=== PATIENT | female | born 1975 ===

== ENCOUNTER 2017-07-16 10:01 | Emergency (ER) | payer OTHER ==
[2017-07-16 10:01] VITALS: BMI 28.3
[2017-07-16] MEDS ORDERED: Bacitracin 500 Units/gm Oint Foilpak UD TOP ONE (10:30)
--- NOTE | 2017-07-16 10:35 | C.PDOC ---
History Of Present Illness 42 year old female presents to the ED c/o bilateral knee, bilateral shoulder and lower back pain s/p tripping and falling on Friday. Patient reports she was crossing the street when her left shoe got stuck and she fell on her knees and wrists. Patient states she tried Tylenol for pain. Patient denies LOC, headache, head injury, blurry vision, CP, SOB, abdominal pain, weakness, numbness. Time Seen by Provider: 07/16/17 10:16 Chief Complaint (Nursing): Lower Extremity Problem/Injury History Per: Patient History/Exam Limitations: no limitations Onset/Duration Of Symptoms: Days Current Symptoms Are (Timing): Still Present Recent travel outside of the [place]: No Additional History Per: Patient - Knee Description Of Injury: Fell Currently Unable To: Bend Or Move Alleviating Factor(s): OTC Pain Medication Past Medical History Reviewed: Historical Data, Nursing Documentation, Vital Signs Vital Signs: Last Vital Signs Temp 98.0 F 07/16/17 11:30 Pulse 64 07/16/17 11:30 Resp 18 07/16/17 11:30 BP 104/73 07/16/17 11:30 Pulse Ox 100 07/16/17 11:47 - Medical History PMH: No Chronic Diseases Surgical History: No Surg Hx Family History: States: Unknown Family Hx - Social History Hx Tobacco Use: No Hx Alcohol Use: No Hx Substance Use: No - Immunization History Hx Tetanus Toxoid Vaccination: No Hx Influenza Vaccination: No Hx Pneumococcal Vaccination: No Review Of Systems Constitutional: Negative for: Fever, Chills Cardiovascular: Negative for: Chest Pain Respiratory: Negative for: Shortness of Breath Gastrointestinal: Negative for: Abdominal Pain Musculoskeletal: Positive for: Shoulder Pain, Back Pain, Leg Pain Skin: Negative for: Rash Neurological: Negative for: Weakness, Numbness Physical Exam - Physical Exam Appears: Non-toxic, No Acute Distress Skin: Normal Color, Warm, Dry Head: Atraumatic, Normacephalic Eye(s): bilateral: Normal Inspection Nose: No Discharge Oral Mucosa: Moist Neck: Normal ROM, No Midline Cervical Tenderness, Supple Chest: Symmetrical Cardiovascular: Rhythm Regular, No Murmur Respiratory: Normal Breath Sounds, No Rales, No Rhonchi, No Wheezing Gastrointestinal/Abdominal: Soft, No Tenderness, No Guarding, No Rebound Back: No Vertebral Tenderness, Paraspinal Tenderness (Mid parlumbar ) Extremity: Normal ROM, Tenderness (B/L knees but Right > left), Capillary Refill (<2 seconds), No Swelling, Other (Abrasion to B/L knees, right > left. No cellulitic component) Pulses: Left Radial: Normal, Right Radial: Normal, Left Dorsalis Pedis: Normal, Right Dorsalis Pedis: Normal Neurological/Psych: Oriented x3, Normal Motor, Normal Sensation Gait: Steady ED Course And Treatment O2 Sat by Pulse Oximetry: 100 (On RA) Pulse Ox Interpretation: Normal - Other Rad B/L knee X-Ray X-Ray: Interpreted by Me, Viewed By Me Interpretation: Preliminary read as no fracture. Medical Decision Making Medical Decision Making: Assessment: knee contusion s/p fall Plan: * B/L knee X-Ray * Bacitracin 1 ea TOP * Motrin 600 mg PO * Ultram 50 mg PO Patient has contusions, abrasion. Patient will be D/C with pain medications, advised to follow up in 2 days with her PMD or return to the ED if symptoms worsens. Disposition Counseled Patient/Family Regarding: Studies Performed, Diagnosis, Need For Followup, Rx Given - Disposition Referrals: [facility] [Outside] Disposition: HOME/ ROUTINE Disposition Time: 11:43 Condition: STABLE Additional Instructions: follow up with clinic in 2 days call to make an appointment take pain medications as needed return to hospital if symptoms worsens or progress apply bacitracin twice daily Prescriptions: Bacitracin Ointment [Bacitracin] 1 applic TOP BID PRN #30 tube PRN Reason: Rash Naproxen [Naprosyn] 500 mg PO BID PRN #16 tab PRN Reason: Pain, Moderate (4-7) traMADol [Ultram] 50 mg PO TID PRN #12 tab PRN Reason: Pain, Moderate (4-7) Instructions: Skin Abrasions, Contusion (DC) Forms: [facility] (Citizen [place]), Gen Discharge Inst [place] Print Language: [place] - Clinical Impression Clinical Impression: Abrasion, Contusion - Scribe Statement The provider has reviewed the documentation as recorded by the Scribe Joseph Bright All medical record entries made by the Scribe were at my direction and personally dictated by me. I have reviewed the chart and agree that the record accurately reflects my personal performance of the history, physical exam, medical decision making, and the department course for this patient. I have also personally directed, reviewed, and agree with the discharge instructions and disposition.
[2017-07-16] MEDS ORDERED: Bacitracin 500 Units/gm Oint Foilpak UD ONE (10:40)
[2017-07-16 11:36] VITALS: BP 104/73; PULSE 64; RESP 18; TEMP 98
[2017-07-16 11:46] VITALS: O2SAT 100
--- NOTE | 2017-07-16 12:39 | RAD ---
PROCEDURE: Bilateral Knee Radiographs. HISTORY: fall COMPARISON: None. FINDINGS: BONES: Right Knee: Normal. No fracture. Left Knee: Normal. No fracture. JOINTS: Right Knee: Normal. No osteoarthritis. Left knee: Normal. No osteoarthritis. SOFT TISSUES: Right Knee: Normal. Left Knee: Normal. JOINT EFFUSION: Right Knee: None. Left Knee: None. OTHER FINDINGS: None. IMPRESSION: Normal radiographs of the knees.
== END 2017-07-16 11:52 | disposition home or self-care (01) ==
LOC: C.ER 10:01
DX: S80.02XA Contusion of left knee, initial encounter (principal); S80.01XA Contusion of right knee, initial encounter; W01.0XXA Fall on same level from slipping, tripping and stumbling without subsequent striking against object, initial encounter; Y93.01 Activity, walking, marching and hiking; Y92.410 Unspecified street and highway as the place of occurrence of the external cause

== ENCOUNTER 2018-05-13 11:55 | Outpatient (CLI) | payer OTHER | END 2018-05-13 11:56 | disposition home or self-care (01) | LOC: C.LAB 11:55 | DX: N39.0 Urinary tract infection, site not specified (principal); M06.9 Rheumatoid arthritis, unspecified ==

== ENCOUNTER 2018-07-15 10:12 | Outpatient (CLI) | payer OTHER | END 2018-07-15 10:13 | disposition home or self-care (01) | LOC: C.MAMMO 10:13 ==

== ENCOUNTER 2018-08-27 11:18 | Outpatient (CLI) | payer OTHER | END 2018-08-27 11:19 | disposition home or self-care (01) | LOC: C.USIC 11:18 | DX: R10.2 Pelvic and perineal pain (principal) ==